=== PATIENT | male | born 1950 | race Two or more races ===

== ENCOUNTER 2018-07-30 01:28 | Emergency (ER) | payer OTHER ==
[~2018-07-30] VITALS: Ht 170.2 cm; Wt 72.1 kg
[~2018-07-30 01:28] MED LIST: SIMVASTATIN5 MG
== END 2018-07-30 03:34 | disposition designated cancer center or children's hospital (05) ==
LOC: ER 01:28
DX: I21.29 ST elevation (STEMI) myocardial infarction involving other sites (principal); I11.0 Hypertensive heart disease with heart failure; I50.9 Heart failure, unspecified

== ENCOUNTER 2018-08-26 07:37 | Emergency (ER) | payer OTHER ==
[~2018-08-26] VITALS: Ht 172.7 cm; Wt 74.4 kg
== END 2018-08-26 19:58 | disposition home or self-care (01) ==
LOC: ER 07:37 → CPU-OBS 08:32 → ER 08:32
DX: I25.2 Old myocardial infarction (principal); I11.0 Hypertensive heart disease with heart failure; I50.20 Unspecified systolic (congestive) heart failure; R10.84 Generalized abdominal pain

== ENCOUNTER 2022-06-01 18:21 | Emergency (ER) | payer OTHER ==
[~2022-06-01] VITALS: Ht 172.7 cm; Wt 69.4 kg
== END 2022-06-01 22:46 | disposition home or self-care (01) ==
LOC: ER 18:21
DX: R10.13 Epigastric pain (principal); I25.10 Atherosclerotic heart disease of native coronary artery without angina pectoris; K21.9 Gastro-esophageal reflux disease without esophagitis

== ENCOUNTER 2022-06-03 19:49 | Emergency (ER) | payer OTHER ==
[~2022-06-03] VITALS: Ht 172.7 cm; Wt 705.3 kg
[2022-06-03] MEDS ORDERED: IRBESARTAN150 MG PO (20:03)
[2022-06-03] MEDS ORDERED: CLOPIDOGREL BIS75 MG PO (20:03)
[2022-06-03] MEDS ORDERED: FUROSEMIDE20 MG PO (20:03)
[2022-06-03] MEDS ORDERED: AMLODIPINE BESYL5 MG PO (20:03)
[2022-06-03] MEDS ORDERED: ATORVASTATIN CA40 MG PO (20:04)
[2022-06-03] MEDS ORDERED: NITROGLYCERIN0.4 MG SL (20:04)
[2022-06-03] MEDS ORDERED: CARVEDILOL25 M1 PO (20:04)
[2022-06-03] MEDS ORDERED: ISOSORBIDE MONO30 M2 PO (20:04)
== END 2022-06-03 20:34 | disposition home or self-care (01) ==
LOC: ER 19:49
DX: I35.1 Nonrheumatic aortic (valve) insufficiency (principal); I20.9 Angina pectoris, unspecified; I10 Essential (primary) hypertension